=== PATIENT | female | born 1975 | race Caucasian/White ===

== ENCOUNTER 2020-10-30 11:07 | Outpatient (CLI) | payer MEDICAID | END 2020-10-30 23:59 | disposition home or self-care (01) | LOC: RAD 11:07 | PROVIDERS: ATTEND Physician Assistant Medical | DX: M51.35 Other intervertebral disc degeneration, thoracolumbar region (principal); M41.85 Other forms of scoliosis, thoracolumbar region; M48.061 Spinal stenosis, lumbar region without neurogenic claudication | CPT/HCPCS: 72082 ==